=== PATIENT | male | born 1995 | race Two or more races ===

== ENCOUNTER 2024-11-16 23:10 | Emergency (ER) | payer MEDICAID, OTHER ==
[~2024-11-16] VITALS: Ht 134.6 cm; Wt 45.0 kg
[2024-11-16 23:10] VITALS: BP 0/0; PULSE 0; RESP 0; TEMP 98.5; O2SAT 0
[~2024-11-16 23:10] MED LIST: ACET167L GT; CARB200T5 PO; EPINEPHrine HCL 1 MG/10 ML SYRG IV ONE; IBUP100S11 GT; LAM100T GT; LORA-483 GT; MENTOIN9 EX; RANI75SY GT; [UNRECOGNIZED DRUG - CODE] XX
--- NOTE | 2024-11-16 23:56 | ED.PDOC ---
CPR-HPI HPI Comments 29-year-old male, with a limited known history of cerebral palsy, tracheostomy, and PEG tube, is brought in by ambulance from private residence for cardiopulmonary arrest. Per EMS report, initial call for patient was cancelled en route at 2217 after law enforcement, who arrived on scene, first, at 2212 pronounced the patient as after finding the patient without a pulse for a period of time. Family on scene then endorsed on patient still breathing and having a pulse after hooking patient up to a SpO2 monitor prior to then asking law enforcement to call EMS, again, at 2241. On scene, patient is reported to have been pulseless, apneic, and asystole. EN route, patient received 2 rounds of epinephrine (last administered at 2305), CPR, and ventilation via trach in addition to IO to right tibia. Upon arrival to ED, patient still remained in asystole. 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 ROS: Unable to obtain, patient unresponsive PHYSICAL EXAM: General: Unresponsive, no spontaneous movements, HEENT: conjunctival Dr. With hemorrhage is noted, eyelids open, absent pupilla ry and corneal reflexes. Jaw fixed in open position. Extremities: Contractures bilateral upper and lower extremities. Skin: Pale, mild jaundice, cool to touch. Cardiovascular: No palpable pulse, absent capillary refill Respiratory: No spontaneous respiration Chief Complaint: CPR Time Seen by MD: 23:09 Reviewed Notes: Powder Monkey Notes Allergies: Coded Allergies: NO KNOWN ALLERGIES (Unverified , 03/04/15) Home Meds Reported Medications Ranitidine Hcl (Ranitidine Hcl) 75 Mg/5 Ml Syp, 2.5 ML GT BID, #60 ML 1 Refill 03/04/15 Loratadine (CLARITIN TABLET) 10 Mg Tb, 10 MG GT DAILY 03/04/15 Lamotrigine (LAMICTAL) 100 Mg Tab, 100 MG GT BID, TAB 03/04/15 Acetaminophen (TYLENOL) 167MG/5 Liq, 500 MG GT QIDP PRN for MILD PAIN, LIQ 03/04/15 Carbamazepine (TEGretol TABLET) 200 Mg Tb, 10 ML PO TID 03/04/15 Polyethylene Glycol (POLYETHYLENE GLYCOL 3350) 3,350 Mg Gra, 3350 MG XX HS PRN for FOR CONSTIPATION, GRA 03/04/15 Menthol-Zinc Oxide (Calmoseptine) Oin, 1 EX QID, OIN 03/04/15 Ibuprofen (Motrin) 100 Mg/5 Ml Ud, 400 MG GT TIDP PRN for MILD PAIN 03/04/15 Information Source: Emergency Med Personnel Past Medical History Past Medical History (Other): Cerebral palsy Surgical History (Other): Tracheostomy PEG tube Was a procedure done? Was a procedure done?: No Differential Dx CPR Differential Diagnosis: Cardiopulmonary arrest, Dysrhythmia, Electrolyte disorder, Heart Block, Myocardial Infarction, Pulmonary Embolus, Respiratory Failure X-Ray, Labs, Meds, VS Vital Signs Date Time Temp Pulse Resp B/P (MAP) Pulse Ox O2 Delivery O2 Flow Rate FiO2 11/16/24 23:10 98.5 0 0 0/0 0 98.5 Time of 1ST Reevaluation: 23:30 Reevaluation 1ST: Patient is Patient Education/Counseling: Other (Patient is ) Family Education/Counseling: Treatment, Prognosis SEPSIS Sepsis Screen Vital Signs Date Time Temp Pulse Resp B/P (MAP) Pulse Ox O2 Delivery O2 Flow Rate FiO2 11/16/24 23:10 98.5 0 0 0/0 0 98.5 Departure 1 Departure Time of Disposition: 23:12 Impression: Primary Impression: Cardiac arrest Disposition: 20 Condition: Other () Comments 29-year-old male arrived to the emergency department in cardiac arrest. Cardiac compressions were performed by staff in order to sustain blood flow. The patient was ventilated and oxygenated. The patient received appropriate ACLS measures and these were repeated as necessary throughout the resuscitation. CPR was performed under my direct supervision and guidance. See patient resuscitation status note for medications and times given. Critical care time spent > 30 minutes in coordination of efforts for cardiopulmonary resuscitation. After discontinuation of resuscitation, I did not observe spontaneous breathing or appreciate heart sounds on auscultation. There was no palpable radial pulse. The patient did not respond to nail bed stimuli. I examined the patient and there was no pupillary response to light. Patient was pronounced . TOD: 23:12 Critical Care Note Critical Care Time?: No Heart Score Heart Score: Heart Score Response (Comments) Value History N/A 0 EKG N/A 0 Age N/A 0 Risk Factors N/A 0 Troponin N/A 0 Total 0 Stability Stability form required: No I personally scribed for ANNEMARIE RAMIREZ MD ([email or web address]) on 11/16/24 at 23:56. Electronically submitted by Juan Willis ([email or web address]). ANNEMARIE RAMIREZ MD Nov 16, 2024 23:56
--- NOTE | 2024-11-17 07:10 | RESUS ---
CODE BLUE ASSESSSMENT History of Events History of Events: 29-year-old male, with a limited known history of cerebral palsy, tracheostomy, and PEG tube, is brought in by ambulance from private residence for cardiopulmonary arrest. Per EMS report, initial call for patient was cancelled en route at 2217 after law enforcement, who arrived on scene, first, at 2 pronounced the patient as after finding the patient without a pulse for a period of time. Family on scene then endorsed on patient still breathing and having a pulse after hooking patient up to a SpO2 monitor prior to then asking law enforcement to call EMS, again, at 2241. On scene, patient is reported to have been pulseless, apneic, and asystole. EN route, patient received 2 rounds of epinephrine (last administered at 2304), CPR, and ventilation via trach in addition to IO to right tibia. Upon arrival to ED, patient still remained in asystole. Initial Information Date: Nov 16, 2024 Time: 22:41 Location of Arrest: In Field Arrest Witnessed: Yes CPR started initial time: 22:41 CPR started by whom: Last seen well: PRIOR TO ARREST Pre-Hospital Care: ACLS Type of arrest: Cardiac, Respiratory, Adult, Witnessed Spontaneous Respirations: No Pulse Present: No Monitoring: ECG, Apnea, Telemetry Airway Ventilation Breathing at Onset: Apneic O2 Sat by Pulse Oximetry: 0 Oxygen Delivery Method: Ambu-Bag Oxygen 1OO Artificial Ventilation: N/A Intubated orally: No Intubated Nasaly: No Confirmation: Auscultation Comments: PT HAD A PREVIOUSLY PLACED TRACH Circulation Circulation : Time: 23:09 Pulse Rate (adult): 0 Blood Pressure Systolic: 0 Blood Pressure Diastolic: 0 Temperature (Fahrenheit): 96.4 Procedure - Intraosseous Site of Intraosseous: Tibia ashly-medial Intraosseous inserted by: PLACED BY EMS Medications & Response Medications and Responses : Medication Time: 23:10 ADULT Medications Given ADULT: Epinephrine 1 mg Route of Administration: IO Heart Rate: 0 EKG Rhythm: Asystole Blood Pressure Systolic: 0 Blood Pressure Diastolic: 0 Respiratory Rate: 0 O2 Sat by Pulse Oximetry: 0 EKG Rhythm: Asystole Comment 2311 PRONOUNCED Pacing Pacer Pads Applied and Pacing: Yes Nurses Notes [place] Coma Scale Eye Opening: None (1) [place] Coma Scale Verbal: None (1) [place] Coma Scale Motor: None (1) [place] Total: 3 Pupil Reaction: Non Reactive EKG Rhythm: Asystole Time Code Ended Time Code Ended: 23:09 Post Arrest Status: Outcome of code: Unsuccessful Patient pronounced by: DR RAMIREZ Time patient pronounced: 23:09 Code Team Present: BLAZE OLIVER RN HS, [facility] TECH, EMELINA RN, MINNIE JOHNS ERT, DAISY ERT, SERGEI RT Post Resuscitation Neurologica Pupil Size: 4 Comment: FIXED BLAZE MERIDA Nov 17, 2024 07:10
== END 2024-11-16 23:58 ==
LOC: EDBD 23:10 → ER 23:10 → EDUNIT# 23:10 → ER 23:58
DX: I46.9 Cardiac arrest, cause unspecified (principal); G80.9 Cerebral palsy, unspecified; Z79.899 Other long term (current) drug therapy
CPT/HCPCS: 82947; 92950; 99285; J0169